=== PATIENT | male | born 1945 | race Caucasian/White ===

== ENCOUNTER 2018-09-23 09:39 | Emergency (ER) | payer MEDICARE ==
[~2018-09-23] VITALS: Ht 177.8 cm; Wt 83.9 kg
[~2018-09-23 09:39] MED LIST: ASA81 MG; NEXIUM; Z.0.CRESTOR10 MG; Z.0.FLOMAX0.4 MG
[2018-09-23] MEDS ORDERED: ACETAMINOPHEN 325 MG TAB PO ONE (10:15)
[2018-09-23] MEDS ORDERED: PIPER-TAZ 3.375 GM 50 ML IV ONE (10:15)
[2018-09-23] MEDS ORDERED: IOPAMIDOL 370 MG/ML 50ML INFUS..BTL INJ ONE (11:15)
--- NOTE | 2018-09-23 11:18 | Diagnostic Imaging Report ---
CT MAX/FAC.PARANASAL SINUS W HISTORY: Mastoid swelling, right ear swelling COMPARISON: None. TECHNIQUE: Axial CT images were obtained through the face with intravenous, iodine based contrast. Coronal and sagittal reconstructions obtained from the axial data. One or more of the following dose reduction techniques were used: Automated exposure control, adjustment of the mA and/or kV according to patient size, and/or utilization of iterative reconstruction technique. 100 mL of Isovue-370 were administered. DISCUSSION: An approximately 2.2 x 1.4 x 1.1 cm (sagittal by AP by transverse) peripherally enhancing, hypodense (fluid density) subcutaneous collection in the right pinna/auricle is surrounded by mild subcutaneous edema/fat stranding. The adjacent opening of the right external auditory canal is grossly patent. There is no local osseous destruction. A few small right parotid, right external jugular chain, and right posterior cervical lymph nodes are likely reactive. Otherwise, no radiographically significant cervical adenopathy is seen. The visualized upper aerodigestive tract is unremarkable. The submandibular and parotid glands are unremarkable. Mild bilateral carotid bulb calcified plaque is present. The network diagnostic support specialist, parapharyngeal, posterior cervical, and perivertebral spaces are otherwise unremarkable. Mild carotid siphon and intradural vertebral artery calcifications are present. Otherwise, the visualized intracranial compartment and orbits are grossly unremarkable. There is minimal scattered paranasal sinus mucosal thickening. There are mild degenerative changes throughout the spine. IMPRESSION: Approximately 2.2 cm peripherally enhancing, subcutaneous collection in the right pinna/auricle may be an abscess. No local osseous destruction. The right external auditory canal is grossly patent. Signed by: Dr. Joshua Cabral M.D. on 09/23/2018 11:15 AM
== END 2018-09-23 12:20 | disposition home or self-care (01) ==
LOC: FSED 09:39
DX: L02.811 Cutaneous abscess of head [any part, except face] (principal); E78.5 Hyperlipidemia, unspecified; K21.9 Gastro-esophageal reflux disease without esophagitis
CPT/HCPCS: 10060; 70487; 80048; 85025; 99284; J2543; Q9967

== ENCOUNTER 2018-11-19 18:59 | Emergency (ER) | payer MEDICARE ==
[~2018-11-19] VITALS: Ht 177.8 cm; Wt 83.9 kg
--- OUTSIDE RECORDS SUMMARY | 2018-11-19 19:01 | XMS REPORT ---
Author Author [facility] Address Unknown Phone Unavailable Care Team Providers Care Central Supply Nurse Name Role Phone Tremaine POWELL Unavailable Unavailable Problems This patient has no known problems. Allergies, Adverse Reactions, Alerts This patient has no known allergies or adverse reactions. Medications This patient has no known medications. Results Test Description Test Time Test Comments Text Results Atomic Results Result Comments CT MAX/FAC.PARANASAL SINUS W 2018-09-23 10:59:00 [place] [address] Patient Name: ANMOL AMANDA MR #: [id number] : 1945 Age/Sex: 73/M Req #: [id number] [facility] Physician: Ordered by: JALYN POWELL MD Report #: [id number] Location: [facility] [place] Room/Bed: Procedure: [id number] HOPD/CT MAX/FAC.PARANASAL SINUS W Exam Date: 09/23/18 Exam Time: 1106 REPORT STATUS: Signed CT MAX/FAC.PARANASAL SINUS W HISTORY: Mastoid swelling, right ear swelling COMPARISON: None. TECHNIQUE: Axial CT images were obtained through the face with intravenous, iodine based contrast. Coronal and sagittal reconstructions obtained from the axial data. One or more of the following dose reduction techniques were used: Automated exposure control, adjustment of the mA and/or kV according to patient size, and/or utilization of iterative reconstruction technique. 100 mL of Isovue-370 were administered. DISCUSSION: An approximately 2.2 x 1.4 x 1.1 cm (sagittal by AP by transverse) peripherally enhancing, hypodense (fluid density) subcutaneous collection in the right pinna/auricle is surrounded by mild subcutaneous edema/fat stranding. The adjacent opening of the right external auditory canal is grossly patent. There is no local osseous destruction. A few small right parotid, right external jugular chain, and right posterior cervical lymph nodes are likely reactive. Otherwise, no radiographically significant cervical adenopathy is seen. The visualized upper aerodigestive tract is unremarkable. The submandibular and parotid glands are unremarkable. Mild bilateral carotid bulb calcified plaque is present. The rehabilitation clerk, parapharyngeal, posterior cervical, and perivertebral spaces are otherwise unremarkable. Mild carotid siphon and intradural vertebral artery calcifications are present. Otherwise, the visualized intracranial compartment and orbits are grossly unremarkable. There is minimal scattered paranasal sinus mucosal thickening. There are mild degenerative changes throughout the spine. IMPRESSION: Approximately 2.2 cm peripherally enhancing, subcutaneous collection in the right pinna/auricle may be an abscess. No local osseous destruction. The right external auditory canal is grossly patent. Signed by: Dr. Joshua Underwood M.D. on 09/23/2018 11:15 AM Dictated By: JOSHUA UNDERWOOD MD [id number] Transcribed By: CA on 09/23/18 111 COPY TO: JALYN POWELL MD
[2018-11-19] MEDS ORDERED: MECLIZINE HCL 12.5 MG TAB PO ONE (19:30)
[2018-11-19] MEDS ORDERED: SODIUM CHLORIDE 0.9% 1000ML 1,000 ML IV SCH (19:30)
[2018-11-19] MEDS ORDERED: ONDANSETRON HCL INJ 2MG/ML 2ML 2 MG/ML VIAL IV STA (19:46)
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
== END 2018-11-19 22:29 | disposition home or self-care (01) ==
LOC: FSED 18:59
DX: M54.2 Cervicalgia (principal); S06.0X0A Concussion without loss of consciousness, initial encounter; V43.52XA Car driver injured in collision with other type car in traffic accident, initial encounter; Y92.488 Other paved roadways as the place of occurrence of the external cause; K21.9 Gastro-esophageal reflux disease without esophagitis; E78.5 Hyperlipidemia, unspecified; F17.210 Nicotine dependence, cigarettes, uncomplicated
CPT/HCPCS: 70450; 72125; 80053; 85025; 99283; J2405; J8597

== ENCOUNTER 2018-11-28 09:25 | Emergency (ER) | payer MEDICARE ==
[~2018-11-28] VITALS: Ht 177.8 cm; Wt 83.9 kg
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
[2018-11-28 13:10] VITALS: BP 120/60
== END 2018-11-28 12:25 | disposition home or self-care (01) ==
LOC: FSED 09:25
DX: S06.0X0A Concussion without loss of consciousness, initial encounter (principal); V49.40XA Driver injured in collision with unspecified motor vehicles in traffic accident, initial encounter; Y92.410 Unspecified street and highway as the place of occurrence of the external cause; S46.811A Strain of other muscles, fascia and tendons at shoulder and upper arm level, right arm, initial encounter; K21.9 Gastro-esophageal reflux disease without esophagitis; E78.5 Hyperlipidemia, unspecified; I45.2 Bifascicular block; F17.200 Nicotine dependence, unspecified, uncomplicated; Z79.82 Long term (current) use of aspirin; Z88.5 Allergy status to narcotic agent
CPT/HCPCS: 71046; 80048; 80076; 82553; 84484; 85025; 93005; 99283